=== PATIENT | male | born 1950 ===

== ENCOUNTER 2018-07-20 12:37 | Day surgery (SDC) | payer OTHER ==
[~2018-07-20 12:37] MED LIST: CIPRO500 MG PO; INTESTINEX1 CA1 PO; PERCOCET 5/321 UDTAB PO; PROTONIX40 MG PO
== END 2018-07-20 16:25 | disposition home or self-care (01) ==
LOC: AMB-ENDOS 12:37
DX: Z08 Encounter for follow-up examination after completed treatment for malignant neoplasm (principal); R19.4 Change in bowel habit; Z85.038 Personal history of other malignant neoplasm of large intestine

== ENCOUNTER 2022-05-27 17:07 | Emergency (ER) | payer OTHER ==
[~2022-05-27] VITALS: Ht 182.9 cm; Wt 97.5 kg
[2022-05-27] MEDS ORDERED: AVAPRO150 MG (17:30)
[2022-05-27] MEDS ORDERED: GLIPIZIDE XL5 MG (17:31)
[2022-05-27] MEDS ORDERED: METFORMIN HCL500 M3 (17:31)
[2022-05-27] MEDS ORDERED: NEURONTIN600 M1 (17:31)
== END 2022-05-27 22:13 | disposition home or self-care (01) ==
LOC: ER 17:07
DX: K62.5 Hemorrhage of anus and rectum (principal); Z98.890 Other specified postprocedural states; Z93.2 Ileostomy status; Z88.6 Allergy status to analgesic agent; Z91.040 Latex allergy status; E11.9 Type 2 diabetes mellitus without complications; Z79.84 Long term (current) use of oral hypoglycemic drugs; I10 Essential (primary) hypertension